=== PATIENT | male | born 1995 | race Caucasian/White ===

== ENCOUNTER → 2016-04-27 | Outpatient (REF) ==
[~2016-04-27] MED LIST: ULTRAM 50MG TAB50 MG PO
== END ==
LOC: WSOH 15:14
DX: Z02.89 Encounter for other administrative examinations (principal)

== ENCOUNTER 2016-10-20 21:42 | Emergency (ER) | payer OTHER ==
[~2016-10-20] VITALS: Ht 177.8 cm; Wt 70.5 kg
[2016-10-20] MEDS ORDERED: ULTRAM 50MG TAB50 MG PO (22:14)
== END 2016-10-20 22:59 | disposition home or self-care (01) ==
LOC: COL.ER 21:42
DX: R19.7 Diarrhea, unspecified (principal); R10.31 Right lower quadrant pain; R10.32 Left lower quadrant pain
CPT/HCPCS: J1885